=== PATIENT | female | born 1940 | race Caucasian/White ===

== ENCOUNTER 2016-04-10 05:58 | Day surgery (SDC) | payer MEDICARE ==
[2016-04-05 12:21] LABS: BASOPHILS 1.3 % (0.0-2.0); EOSINOPHILS 2.9 % (0-7); HEMATOCRIT 36.1 % (36.0-48.0); HEMOGLOBIN 11.6 g/dL (12-16); IMMATURE GRANULOCYTES 0.2 % (0-5); LYMPHOCYTES 26.4 % (15-50); MCH 30.2 pg (26.0-34.0); MCHC 32.1 g/dL (31.0-37.0); MEAN PLATELET VOLUME 8.6 fL (7.4-10.4); MONOCYTES 6.7 % (2-11); NEUTROPHILS 62.5 % (40-80); PLATELET COUNT 262 10x3/uL (130-400); RBC 3.84 10x6/uL (4.00-5.40); RDW 14.8 % (11.5-14.5); WBC 5.2 10x3/uL (4.8-10.8)
[2016-04-05 12:29] LABS: INR 0.99 (0.85-1.17)
[~2016-04-10] VITALS: Ht 154.9 cm; Wt 47.6 kg
[2016-04-10 05:46] VITALS: BP 136/67; Ht 154.9 cm; Wt 47.6 kg
[~2016-04-10 05:58] MED LIST: ALENDRONATE SOD70 MG PO; BUPROPION HCL100 MG PO; DURAGESIC1 PATCH .1 TRANSDERM; NEXIUM40 MG PO; NORVASC5 MG PO; PREMPRO 0.45-1.1 TAB PO; REMERON15 MG PO; SYNTHROID75 MCG PO; SYNTHROID88 MCG PO; VIACTIV SOFT C1 EACH PO; VITAMIN D31000 UNIT PO; ZOCOR40 MG PO
--- NOTE | 2016-04-10 07:29 | NUR ---
0720- NO DISTRESS ON ROOM AIR EVEN NONLABORED RESP EFFORT POX 96%. PT DENIES ANY PAIN OR N/V AT THIS TIME. PT DENIES ANY NEEDS OR CONCERNS. CALL LIGHT IN REACH AND FAMILY AT BEDSIDE
--- NOTE | 2016-04-10 07:50 | NUR ---
0745-PT DOING WELL TOLERATED FULL LIQUID TRAY WELL. IV DISCONTINUED WITH CATHETER INTACT. HELPED PT TO BATHROOM TO VOID WILL CONTINUE TO MONITOR. AT BEDSIDE
--- NOTE | 2016-04-10 08:06 | NUR ---
0805-REPORT TO FANG HUGHES RN
--- NOTE | 2016-04-10 09:18 | NUR ---
0830 OFF UNIT PER WC
--- NOTE | 2016-04-11 07:00 | OP ---
PATIENT NAME: FELIX DAWSON MEDICAL RECORD: [id number] :44 LOCATION:[facility] ADMISSION DATE: SURGEON: QUIN THORNTON MD DATE OF OPERATION: 04/10/2016 PREOPERATIVE DIAGNOSIS: Right hip degenerative joint disease. POSTOPERATIVE DIAGNOSIS: Right hip degenerative joint disease. PROCEDURE PERFORMED: Right hip injection under fluoroscopy. SURGEON: Jamaal Thornton MD ANESTHESIA: TIVA. CONDITION: She tolerated the procedure well, was transferred to the recovery room in stable condition at termination of the procedure. INDICATIONS: This is a pleasant 76-year-old female with advanced degenerative changes of her hip. She is not at a juncture; she wanted to have a hip replacement. We did discuss options. She wanted to go ahead and proceed with a hip injection. We discussed the risks, benefits, and alternatives. She understood and wished to proceed. OPERATIVE REPORT: The patient was taken to the operating room, placed in a supine position. TIVA anesthesia was obtained. Once this was accomplished, her right hip was prepped. Fluoroscopy was then brought in. Under fluoroscopy, her hip was injected with IVP dye. Once the dye was clearly noted to be intra-articular, she was then injected with ____ 80 mg of Kenalog with 4 cc of Marcaine plain. She tolerated this well, was awakened and transferred back to the outpatient surgery area in stable condition, having tolerated procedure well. TRANSINT:[id number] Voice Confirmation ID: [id number] DOCUMENT ID: [id number] QUIN THORNTON MD at 0700 CC: [id number] DICTATION DATE: 04/10/16711 WELFARE WORKER: 04/10/16 0733 [facility] 04/10/[address] [address]
--- NOTE | 2016-05-22 16:33 | HP ---
PATIENT: FELIX DAWSON MEDICAL RECORD: [id number] ACCOUNT: [id number] LOCATION:[facility] : 44 ADMISSION DATE: 04/10/16 HISTORY AND PHYSICAL EXAMINATION DATE: 04/10/2016 HISTORY OF PRESENT ILLNESS: This is a pleasant ____[id number]-dyf female that presents with a complaint of right hip pain. This has bothered her for quite some time without relief. We had discussed the options as far as treatment. This has continued to bother her. She has a lot of this in the groin, bilateral hip and in the low back area. ALLERGIES: SHE HAS AN ALLERGY TO SULFA. MEDICATIONS: She takes alendronate, amlodipine, amoxicillin, Brintellix, and bupropion. She has been on Depo-Medrol, fentanyl, hydrocodone, Klor-Con, levothyroxine, Lexapro, mirtazapine, multivitamin, Prempro, sertraline, and simvastatin. She has also been on triamterene Viactiv, Viibryd, and vitamin D3. SOCIAL HISTORY: She is a former smoker. PAST MEDICAL HISTORY: She has history of hypothyroidism, anxiety, chronic depression, hypertensive disorder, dermatitis, GERD, chronic renal impairment, osteoarthritis, chronic low back and neck pain, osteoporosis and scoliosis. PHYSICAL EXAMINATION: VITAL SIGNS: She is 4 feet and 10 inches, weight 98. Blood pressure 135/77 and heart rate is 85. BMI is 20.5. HEENT: Within normal limits. CARDIOVASCULAR: Regular rhythm. LUNGS: Clear. ABDOMEN: Benign. EXTREMITIES: Examination of her right hip reveals tenderness along the groin area, tenderness in forward flexion and internal and external rotation. She is also tender over the greater trochanter and tender on the low back SI joint. ASSESSMENT: Right hip pain/back pain. She is brought to the hospital at this time for intra-articular injection to see what kind of relief she would get. We discussed risks, benefits, and alternatives of this. She was brought in via outpatient surgery to proceed with this procedure. TRANSINT:[id number] Voice Confirmation ID: [id number] DOCUMENT ID: [id number] QUIN THORNTON MD at 1633 CC: [id number] DICTATION DATE: 05/15/16 1442 BUSINESS DEVELOPMENT MANAGER: 05/15/16 1625 [facility] 04/10/16 [facility] [address] [place] [address]
== END 2016-04-10 08:30 | disposition home or self-care (01) ==
LOC: D.OPS 05:58 → D.PAN 07:00 → D.OPS 07:00
PROVIDERS: Anesthesiology
DX: M16.11 Unilateral primary osteoarthritis, right hip (principal); M25.551 Pain in right hip; I10 Essential (primary) hypertension; K21.9 Gastro-esophageal reflux disease without esophagitis

== ENCOUNTER → 2017-03-18 12:59 | Outpatient (CLI) | payer MEDICARE ==
[2016-04-10 05:46] VITALS: BMI 19.8
== END | disposition home or self-care (01) ==
LOC: D.RAD 12:59
DX: M40.209 Unspecified kyphosis, site unspecified (principal)

== ENCOUNTER → 2017-12-19 13:34 | Outpatient (CLI) | payer MEDICARE ==
[2016-04-10 05:46] VITALS: BMI 19.8
== END | disposition home or self-care (01) ==
LOC: D.MRI 13:34
DX: M40.204 Unspecified kyphosis, thoracic region (principal); M40.05 Postural kyphosis, thoracolumbar region